=== PATIENT | female | born 1985 | race Hispanic/Latino ===

== ENCOUNTER → 2018-12-06 18:50 | Outpatient (CLI) | payer OTHER, SELFPAY ==
--- NOTE | 2018-12-06 18:53 | DI.MRI.S_ITS ---
PROCEDURE: MR LUMBAR SPINE WO CON INDICATIONS: 2 weeks history of LBP w/constipation and pain in RLE TECHNIQUE: Noncontrast sagittal T1 spin echo and T2 fast echo, sagittal STIR, axial T1 and T2 fast spin echo through the lumbar spine. In cases with scoliosis, additional coronal T2 fast spin echo may be performed. COMPARISON: None. FINDINGS: Image quality: Excellent. Alignment and Curvature: No plain films are available for comparison, for numbering purposes. Thus, for the purposes of this examination, 5 lumbar type vertebral bodies will be presumed, as denoted on the montage panel. This should be confirmed and correlated with plain films, prior to any lumbar spinal intervention. There is mild grade 1 retrolisthesis of L4 on L5. There is mild grade 1 anterolisthesis of L5 on S1. Bone Marrow: Marrow is of normal overall signal. No acute vertebral body compression fractures. Bilateral L5-S1 pars interarticularis defects. Mild reactive signal within the endplates adjacent to the L4-L5 and L5-S1 intervertebral discs. Spinal Cord: Conus medullaris terminates at the L1-L2 disc space level. Visualized cord demonstrates normal signal and size. Paraspinous Soft Tissues: No paravertebral masses. L1-L2: Normal appearance. L2-L3: Mild facet and ligament flavum hypertrophy. No significant canal, nor foraminal stenosis. L3-L4: Normal appearance. L4-L5: Mild disc height loss. Moderate disc desiccation. Mild diffuse disc bulge. Mild facet and ligamentum flavum hypertrophy. Mild canal stenosis. Mild bilateral foraminal stenosis. L5-S1: Mild disc height loss and desiccation. Mild diffuse disc bulge. Moderate facet hypertrophy bilaterally. Mild canal stenosis. Severe right and moderate to severe left foraminal stenosis. Right L5 nerve root compression. Possible left L5 nerve root compression. IMPRESSION: 1. 5 lumbar type vertebral bodies were presumed for the current report. Plain films of the lumbar spine are recommended for confirmation, prior to any lumbar spinal intervention. 2. Grade I isthmic spondylolisthesis at L5-S1. 3. Multilevel foraminal stenoses, worst at L5-S1 as above, where there is associated intraforaminal nerve root compression. Recommend correlation with clinical symptoms to ascertain relevance of these findings. Dictated by: Wong Hutton M.D. on 12/09/2018 at 10:21 Approved by: Wong Hutton M.D. on 12/09/2018 at 10:31
== END ==
PROVIDERS: PCP Physician Assistant; Visit Provider Physician Assistant
DX: M54.5 Low back pain (principal); K59.00 Constipation, unspecified; M79.604 Pain in right leg; M43.17 Spondylolisthesis, lumbosacral region; M48.07 Spinal stenosis, lumbosacral region; M54.16 Radiculopathy, lumbar region
CPT/HCPCS: 72148

== ENCOUNTER → 2019-12-22 10:42 | Outpatient (CLI) | payer OTHER, SELFPAY ==
[2019-12-22 12:41] LABS: Hemoglobin A1C% w Est Avg Glu 5.3 % (4.0-6.0)
[2019-12-22 12:53] LABS: Cholesterol 183 mg/dL (140-199); HDL Cholesterol 65 mg/dL (40-60); LDL Cholesterol Calculated 107 mg/dL (<100); Triglycerides 57 mg/dL (35-150)
== END ==
PROVIDERS: PCP Family Medicine; Referring Provider Family Medicine; Visit Provider Family Medicine
DX: Z13.1 Encounter for screening for diabetes mellitus (principal); Z13.220 Encounter for screening for lipoid disorders
CPT/HCPCS: 36415; 80061; 83036

== ENCOUNTER → 2022-09-21 19:43 | Outpatient (CLI) | payer OTHER, SELFPAY ==
--- NOTE | 2022-09-21 19:45 | DI.MRI.S_ITS ---
PROCEDURE: MR LUMBAR SPINE WO CON INDICATIONS: LUMBAR STENOSIS TECHNIQUE: Noncontrast sagittal T1 spin echo and T2 fast echo, sagittal STIR, and T2 fast spin echo through the lumbar spine. In cases with scoliosis, additional coronal T2 fast spin echo may be performed. COMPARISON: [facility], MR, MR LUMBAR SPINE WO CON, 12/06/2018, 18:57. FINDINGS: Image quality: Excellent. Alignment and Curvature: Straightening of the normal lumbar lordosis. Minimal retrolisthesis of L4 on L5. Grade 1 anterolisthesis of L5 on S1, mildly progressed compared to prior. Bone Marrow: Progression of degenerative endplate changes at L4-L5 and L5-S1, Modic type 1 Spinal Cord: Conus medullaris terminates at the L1-L2 level. Visualized cord demonstrates normal signal and size. Paraspinous Soft Tissues: No paravertebral masses. T12-L1: Normal appearance. L1-L2: Normal appearance. L2-L3: Mild facet arthropathy and thickening of the ligamentum flavum. No central canal or neural foraminal stenosis. L3-L4: Normal appearance. L4-L5: Progression of disc disease with increased disc height loss and desiccation and posterior disc bulge resulting in mild central canal stenosis. Facet arthropathy and thickened ligamentum flavum. Stable mild neural foraminal stenosis bilaterally. L5-S1: Progression of disc height loss and desiccation and grade 1 anterolisthesis. Facet hypertrophy. Severe bilateral neural foraminal stenosis with nerve root impingement. Mild central canal stenosis is stable. IMPRESSION: 1. Degenerative changes of the lumbar spine, worse at L4-L5 and L5-S1, which is progressed compared to prior. 2. At L5-S1, there is increased disc height loss and desiccation and increased anterolisthesis, grade 1. Severe bilateral neural foraminal stenosis with impingement of the L5 nerve roots. Stable mild central canal stenosis 3. At L4-5, there is progression of disc disease with stable mild central canal stenosis and mild bilateral neural foraminal stenosis. Dictated by: Felipe Aguilar M.D. on 09/22/2022 at 8:54 Approved by: Felipe Aguilar M.D. on 09/22/2022 at 9:03
== END ==
PROVIDERS: PCP Family Medicine; Referring Provider Orthopaedic Surgery Orthopaedic Surgery of the Spine; Visit Provider Orthopaedic Surgery Orthopaedic Surgery of the Spine
DX: M48.062 Spinal stenosis, lumbar region with neurogenic claudication (principal); M47.816 Spondylosis without myelopathy or radiculopathy, lumbar region; M47.817 Spondylosis without myelopathy or radiculopathy, lumbosacral region; M43.17 Spondylolisthesis, lumbosacral region; M51.26 Other intervertebral disc displacement, lumbar region
CPT/HCPCS: 72148

== ENCOUNTER 2022-12-20 12:04 | Inpatient (IN) | payer OTHER, SELFPAY ==
[2022-12-14 14:50] VITALS: BMI 23.0
[2022-12-20] VITALS (9 sets, daily range): BP systolic 91–122; BP diastolic 49–79; PULSE 52–88; RESP 16–24; TEMP 35.7–36.8; O2SAT 94–100; BMI 23.0
--- NOTE | 2022-12-20 | DI.RAD.S_ITS ---
PROCEDURE: XR LUMBAR SPINE 2-3V INDICATIONS: L5-S1 TLIF TECHNIQUE: 2 intraoperative fluoroscopic views of the lumbar spine were acquired. COMPARISON: None. FINDINGS: Bones: Intraoperative fluoroscopic views during L5-S1 posterior fusion and discectomy. The hardware appears intact. IMPRESSION: Intraoperative fluoroscopic views during L5-S1 posterior fusion and discectomy. The hardware appears intact. Dictated by: Felipe Aguilar M.D. on 12/21/2022 at 9:17 Approved by: Felipe Aguilar M.D. on 12/21/2022 at 9:18
[2022-12-20] MEDS: LACTATED RINGERS 1,000 ML 120 ML IV ×2 (13:00→14:07)
--- NOTE | 2022-12-20 13:06 | PM.PREOP ---
Pre-operative Note Interval Note History & Physical reviewed/Exam performed by Physician: Yes Changes to H&P: No
[2022-12-20] MEDS: ACETAMINOPHEN 325 MG TABLET 650 MG PO ×2 (13:11→19:05)
[2022-12-20] MEDS: CLINDAMYCIN 600 MG/50 ML PIGGYBACK 50 MG IV ×2 (13:40→21:53)
--- NOTE | 2022-12-20 13:58 | SUR.OPER ---
Prone on spine table, head in foam head support, padded chest and pelvic supports, gel pad at knees, lower legs supported by pillows; nipples, genitalia and toes free of pressure, arms secured on foam padded arm boards at <90 degrees abduction. Tape over blanket at thigh secured to table.
[2022-12-20] MEDS: BUPIVACAINE LIPOSOME 266 MG/20 ML VIAL INJ (14:07)
[2022-12-20] MEDS: BUPIVACAINE 0.25% (PF) 60 ML, EPINEPHrine 0.15 MG INJ (14:08)
--- NOTE | 2022-12-20 16:39 | PM.OP.1 ---
Operative Date/Time/Diagnoses Date of procedure: 12/20/22 Time of procedure: 14:00 Pre-op diagnosis: 1. L5-S1 spondylolisthesis 2. L5-S1 bilateral foramen stenosis Post-op diagnosis: same Procedure & Clinicians Procedure: 1. L5-S1 Postero-lateral and posterior interbody fusion 2. L5-S1 interbody cage placement. 3. L5-S1 decompressive laminectomy with bilateral facetecomies 4. L5-S1 Posterior non-segmental instrumentation 5. Olalla of bone marrow from iliac crest 6. Utilization of microsurgical technique and operating microscope Same procedure as scheduled: Yes Indications: Patient has been having chronic back pain and worsening lumbar radiculopathy. Patient failed multiple conservative management with worsening back pain and leg numbness in her lower extremity. Patient has been having difficulty performing activity of daily living. After discussing risks benefits of treatment options, patient elected proceed with surgery. Surgeon: Christophe Baca Statistical Machine Servicer: Madhavi Monge Click Yes if Unassisted: No Anesthesia Type: General Operative Notes Closure Type: primary Specimen(s): none sent Prosthetic devices, grafts, tissues, transplants, or devices: Globus revolve screws, Rise cage Estimated Blood Loss (mL): 50 Blood products transfused: none Procedure in detail: Patient was seen in the preoperative area. Risks and benefits of the surgery was discussed with the patient. Informed consent was obtained from the patient and placed in the chart. Surgical site was marked. Patient was taken to the operative room. General anesthesia was administered. Prophylactic antibiotic was given to the patient less than 30 min before the incision was made. Patient was placed into a prone position on the Dong table. Patient's back was then prepped and draped in the sterile fashion. Time-out was performed at this time. Using AP and lateral C-arm imaging the interval between L5-S1 was identified and marked on patient's back. A 2 inch incision 2 in from midline was made on the right side first. The fascia was incised in line with skin incision. Globus MARS retractors was placed inside the incision and docked onto the L5 lamina. Using microsurgical technique and operating microscope, a L5 laminectomy and L5-S1 facetectomy was performed using a Kerrison rongeur. The laminectomy and facetectomy was performed in order to decompress patient's cauda equina as well as the nerve roots exiting at the L5-S1 level. The laminectomy and facetectomy was performed in order to decompress patient's cauda equina as well as the nerve roots exiting at the L5-S1 level. The disc space at L5-S1 was identified. And a total diskectomy was performed at L5-S1 level. The endplates were decorticated using a rasp and shaver. The total diskectomy and decortication was performed at L5-S1 level in order to to accomplish a L5-S1 fusion. The local bone from the laminectomy and facetectomy was saved for local bone grafting. After the total diskectomy and decortication was completed, Trifecta bone graft material was combined with local bone that was harvested earlier. At this time, a separate skin is incision was made over the iliac crest. A Jamshidi needle was inserted into the iliac crest through a separate skin incision. 5 cc of bone marrow aspiration was obtained through the separate skin incision using a Jamshidi needle from the iliac crest. The bone marrow aspiration was combined with local bone and the DBM bone grafting material. The bone grafting material was placed into the L5-S1 interbody space along with a expandable cage. The cage was expanded to its maximum height using the torque limiting screwdriver. At this time a mirror image incision was made on the left side. The fascia was incised in line with the skin incision. Globus MARS retractor was inserted and docked onto the L5-S1 posterolateral gutter. Using the power drill, posterior-lateral decortication was performed at L5-S1 level until bleeding cortical bone was identified. The remaining bone grafting material was placed into the L5-S1 posterior lateral gutter he order to accomplish posterolateral fusion at the L5-S1 level. Using the double C-arm technique, pedicle screws were placed into the L5-S1 pedicles bilaterally. This was done by placing the Jamshidi needle into the pedicles, then placing the guidewires over the Jamshidi needle, and finally placing the cannulated screws over the guidewires bilaterally. After the pedicle screws were placed, 2 titanium rods was locked into the heads of the pedicle screws using locking caps and torque limiting screwdriver. Threaded reducers were used to reduce the patient's spondylolisthesis. The reduction was successful and was maintained using the hardware placed. After all the hardware was placed, and confirmed with AP and lateral C-arm imaging, the wound was then irrigated with sterile normal saline and packed with Ray-Ralph gauze for 3 min to accomplish hemostasis. After the gauze was removed the deep fascia was closed with #1 Vicryl suture. The subcutaneous layer was closed with 2-0 Vicryl. The skin was closed with skin carmen. Patient tolerated the procedure well. There were no complications. The Operation could not have been safely performed without compromising the technical result or length of the procedure, without the assistance of a skilled surgical elastic knitter hand frame. The surgical elastic knitter hand frame was medically necessary for proper positioning, retraction and manipulation of instruments, proper exposure, surgical preparation, and manipulation of tissue. Complications: none Post-operative Condition: stable Disposition: PACU Plan for aftercare: Admit to inpatient hospital
[2022-12-20] MEDS: OXYCODONE IR 5 MG TABLET PO (16:54)
[2022-12-20] MEDS: LACTATED RINGERS 1,000 ML 125 ML IV (17:31)
[2022-12-20] MEDS: hydrOXYzine pamoate 25 MG CAPSULE PO (17:32)
[2022-12-20] MEDS: HYDROMORPHONE 0.5 MG INJ IV (17:32)
--- NOTE | 2022-12-20 17:57 | PC.NURSE ---
Pt arrives to Room 222 at 1720 this evening, she is awake and alert 0x4. She denies numbness or tingling to BLE's. Dressing to back is C/D/I. She requests to use the restroom and follow spinal precautions shown when getting out of bed. She is slightly unsteady but able to ambulate to bathroom for x1 large void this evening shortly after arriving. She denies dizziness. Patient's family at bedside supportive bringing her food. She tolerates food well this evening. LR at 120 ml/hr. SCDS's in place, call light in reach, items in reach,continuous pulse ox, and frequent rounding.
[2022-12-20] MEDS: OXYCODONE IR 10 MG TABLET PO ×2 (19:05→21:52)
[2022-12-20] MEDS: ONDANSETRON 4 MG/2 ML INJ IV (19:07)
[2022-12-20] MEDS: DOCUSATE 100 MG CAPSULE PO (21:52)
[2022-12-20] MEDS: SENNOSIDES 8.6 MG TABLET 17.2 MG PO (21:52)
[2022-12-20] MEDS: ONDANSETRON 4 MG ODT SL (22:34)
[2022-12-21] MEDS: OXYCODONE IR 10 MG TABLET PO ×4 (03:16→13:14)
[2022-12-21] MEDS: LACTATED RINGERS 1,000 ML 125 ML IV (03:23)
[2022-12-21] MEDS: HYDROMORPHONE 0.5 MG INJ IV (04:44)
[2022-12-21] MEDS: CLINDAMYCIN 600 MG/50 ML PIGGYBACK 50 MG IV (06:08)
[2022-12-21] MEDS: ACETAMINOPHEN 325 MG TABLET 650 MG PO (07:57)
[2022-12-21] MEDS: CYANOCOBALAMIN (VITAMIN B-12) 500 MCG TABLET 1000 MCG PO (08:04)
[2022-12-21] MEDS: valACYclovir 500 MG TABLET PO (08:04)
[2022-12-21] MEDS: DOCUSATE 100 MG CAPSULE PO (08:04)
--- NOTE | 2022-12-21 09:25 | PT.IIE ---
Current Diagnoses Spondylolisthesis, lumbosacral region (12/20/22) Spinal stenosis, lumbosacral region (12/20/22) Surgery Performed Operation Date: 12/20/22 13:45 Actual Procedures p L5-S1 TLIF(Not Applicable) - Christophe Baca MD Surgical History (Last Reviewed 12/22/19 @ 10:47 by Vishnu Ansari MD) History of breast augmentation Status post delivery Status post rhinoplasty Medical History (Last Updated 12/22/19 @ 10:48 by Vishnu Ansari MD) Screening for hyperlipidemia Physical Therapy Inpatient Evaluation/Re-Eval M1 PT/OT-IP Prior Functional Status Start: 12/21/22 10:28 Freq: NEEDED Status: Active Protocol: Document 12/21/22 11:37 AB (Rec: 12/21/22 11:52 AB [id number]) Medical Review Prior Functional Status Medical History Reviewed Yes Communication Independent Mobility and Gait Had pain with certain movements. Activities of Daily Living and IADL's Pt had difficulty and pain to dottie her socks, wipe after toileting, and for IADL needs. Prior Functional Level (Other details) Pt's kids to assist along with her mother and mother in law. Social History Household Members children Living Arrangements House Number of Floors (Floors) Two Floors Number of Stairs To Enter/Railing? 2 ERIN without hand rails Home Environment Standard Height Toilet,Tub/ Shower Home Equipment Hand Held Shower,Grab Bars In Shower Additional Social History Comment Pt reports she has 8 steps (R hand rail) + 8 steps ( banisters) to go up to her room and bathrooms with showers. She reports she will be sleeping on main level in recliner. She also states her mom and her MIL will be assisting her for 3 weeks, and her 2 older kids can assist her with a lot of natural resources professor. M1 PT/OT-IP Prior Functional Status Start: 12/21/22 11:37 Freq: NEEDED Status: Active Protocol: Document 12/21/22 11:37 AB (Rec: 12/21/22 11:52 AB [id number]) Medical Review Prior Functional Status Medical History Reviewed Yes Communication Independent Mobility and Gait Had pain with certain movements. Activities of Daily Living and IADL's Pt had difficulty and pain to dottie her socks, wipe after toileting, and for IADL needs. Prior Functional Level (Other details) Pt's kids to assist along with her mother and mother in law. Social History Household Members children Living Arrangements House Number of Floors (Floors) Two Floors Number of Stairs To Enter/Railing? 2 ERIN without hand rails Home Environment Standard Height Toilet,Tub/ Shower Home Equipment Hand Held Shower,Grab Bars In Shower Additional Social History Comment Pt reports she has 8 steps (R hand rail) + 8 steps ( banisters) to go up to her room and bathrooms with showers. She reports she will be sleeping on main level in recliner. She also states her mom and her MIL will be assisting her for 3 weeks, and her 2 older kids can assist her with a lot of natural resources professor. M2 PT-IP Current Condition Start: 12/21/22 11:37 Freq: NEEDED Status: Active Protocol: Document 12/21/22 11:37 AB (Rec: 12/21/22 11:52 AB [id number]) Physical Therapy Current Condition Current Condition Evaluation Date 12/21/22 Treatment Diagnosis s/p lumbar TLIF L5-S1 Onset Date 12/20/22 M3 PT-IP Subjective Start: 12/21/22 11:37 Freq: NEEDED Status: Active Protocol: Document 12/21/22 11:37 AB (Rec: 12/21/22 11:52 AB [id number]) Subjective Physical Therapy Visit Type Type Initial Evaluation Visit Start Time 08:58 Visit Stop Time 09:25 Total Visit Minutes 27 Physical Therapy Visit Comments Patient Comments Pt presents semi supine in bed and is agreeable to PT evaluation. She denies having any symptoms currently. Therapy Pain Assessment Pain When Pain Assessed At Rest Pain Present Pain Present Denied Pain M4 PT-IP Mobility and Gait Start: 12/21/22 11:37 Freq: NEEDED Status: Active Protocol: Document 12/21/22 11:37 AB (Rec: 12/21/22 11:52 AB [id number]) PT-Bed Mobility Assessment Rolling Type of Rolling Log Rolling Level of Assist Independent Supine to Sit Supine to Sit Independent Sit to Supine Sit to Supine Independent Scooting Scooting to Edge of Bed Independent Scooting Up and Down in Bed Independent PT-Transfer Assessment Sit to and From Stand Sit to and from Stand Independent,Use of Upper Extremities Equipment Transfer Assistive Device Gait Belt Transfers Transfer Destination Bed Transfer Technique Stand Step Pivot Comments Mobility Comments The pt has been up with nursing already and denies any symptoms when being up. She is able to perform all bed mobility, STS and transfers with independence. The pt was provided with a few tips to maintain lumbar spine precautions, but is otherwise able to perform with ease and without symptoms. After ambulation and stairs, the pt returned to bed with all needs met and call light within reach. RN was notified of findings. Gait Assessment Gait Gait Assistance Required: Independent Distance (Feet) 300 Assistive Devices Assistive Device Gait Belt Gait Deviations General Gait Pattern Within Normal Limits Comments Gait Comments The pt was able to ambulate 300ft without an assistive device and with independence. No gait deviations were noted, though she report ambulating at a slower иван due to being in bed for the last 24 hours. Otherwise, she denies any symptoms. Stair Climbing Assessment Evaluation Level of Assist On Stairs Independent Devices Stair Climbing Assistive Devices Right Railing Technique/Endurance Stair Climbing Direction Ascend and Descend Stair Climbing Technique Step Over Step Number of Steps Climbed 9 Query Text: Stair Climbing Set # Repetitions (reps) 2 Comments Stair Climbing Comments Pt is able to ascend/descend 9 steps with 1 hand rail independently with step over step (reciprocally). No deficits noted. She is even able to ascend 2-3 without use of hand rail. PT-Balance Assessment Sitting Balance and Reactions Static Sitting Balance Ability Normal Dynamic Sitting Balance Ability Normal Standing Balance and Reactions Static Standing Balance Ability Normal Dynamic Standing Balance Ability Normal M5 PT-IP Objective Assessments Start: 12/21/22 11:37 Freq: NEEDED Status: Active Protocol: Document 12/21/22 11:37 AB (Rec: 12/21/22 11:52 AB [id number]) Orientation Orientation/Cognition Level of Alertness Alert Orientation Name,Age,Birthday,Month,Date, Year,Day of Week,Place, Situation Language Function Ability No Deficits Noted Safety Awareness Understands Safety Issues Memory Description No Deficits Noted Gross Range of Motion Upper Extremity ROM Assessment Within Functional Limits Lower Extremity ROM Assessment Within Functional Limits Strength Upper Extremity Strength Assessment Within Functional Limits Lower Extremity Strength Assessment Within Functional Limits M6 PT-IP Treatment Start: 12/21/22 11:37 Freq: NEEDED Status: Active Protocol: Document 12/21/22 11:37 AB (Rec: 12/21/22 11:52 AB [id number]) Physical Therapy Treatment Education Education Provided Precautions,Post-Op Packet, Safety Brace Education Patient M7 PT-IP Assessment and Plan Start: 12/21/22 11:37 Freq: NEEDED Status: Active Protocol: Document 12/21/22 11:37 AB (Rec: 12/21/22 11:52 AB [id number]) PT Summary Assessment and Plan Potential Rehabilitation Potential Excellent Status of Condition at Evaluation Stable Summary Impairments Strength,Activity Tolerance Assessment Summary Sylvia Rogers is a 37 year old female patient who is s/p lumbar TLIF L5-S1 performed on 12/20/22. The pt demonstrates a high level of function during today's PT evaluation, as she is able to perform all functional mobility with independence, including ambulation and stairs. Based on her current level of function, PT recommends discharge to home with assistance. She was educated on surgical precautions as well as seeking outpatient PT in the future if needed. Goals Bed Mobility Goal Independent Transfer Goal Independent Gait Goal Independent Gait Distance 500 Other Goals Pt to ambulated 500ft independently to demonstrate ability to ambulate community distances. Days to Meet Goals 5 Frequency of Treatment Frequency Of Treatment Discharge Treatment Plan Physical Therapy Treatment Plan Bed Mobility Training,Transfer Training,Gait Training, Therapeutic Exercise,Balance Retraining,Post Op Education, Discharge Planning,Hot or Cold Pack,Neuromuscular Re-ed, Coordination Retraining,Manual Therapy Other Recommendations and Next Treatment Discharge pt due to high level Focus of function. Precautions Lumbar Precautions Log Roll,No Twisting,Limit Bending,Lifting Restriction of 10 lbs,Gait Belt above Incisional Area Weight Bearing Status Weight Bearing Status Weight Bear as Tolerated Recommendations To Nursing Amount of Assist Needed Independent Discharge Recommendations PT Discharge Recommendations Home with Assistance Other Discharge Recommendations Pt was educated on seeking outpatient PT in the future as needed. Transportation Needs at Discharge Private Vehicle
--- NOTE | 2022-12-21 10:25 | OT.IP.EVAL ---
Current Diagnoses Spondylolisthesis, lumbosacral region (12/20/22) Spinal stenosis, lumbosacral region (12/20/22) Surgery Performed Operation Date: 12/20/22 13:45 Actual Procedures p L5-S1 TLIF(Not Applicable) - Christophe Baca MD Past Medical History (Last Updated 12/22/19 @ 10:48 by Vishnu Ansari MD) Screening for hyperlipidemia Surgical History (Last Reviewed 12/22/19 @ 10:47 by Vishnu Ansari MD) History of breast augmentation Status post delivery Status post rhinoplasty Occupational Therapy Inpatient Evaluation/Re-Eval M1 PT/OT-IP Prior Functional Status Start: 12/21/22 10:28 Freq: NEEDED Status: Active Protocol: Document 12/21/22 10:28 [facility] (Rec: 12/21/22 10:39 [facility] [id number]) Medical Review Prior Functional Status Communication Independent Mobility and Gait Had pain with certain movements. Activities of Daily Living and IADL's Pt had difficulty and pain to dottie her socks, wipe after toileting, and for IADl needs. Prior Functional Level (Other details) Pt's kids to assist along with her mother and mother in law. Social History Household Members children Living Arrangements House Number of Floors (Floors) Two Floors Number of Stairs To Enter/Railing? 2 steps and then multiple steps to the upstairs. Pt states to just stay downstairs in the recliner initially. Home Environment Standard Height Toilet,Tub/ Shower Home Equipment Hand Held Shower,Grab Bars In Shower M2 OT-IP Current Condition Start: 12/21/22 10:28 Freq: Status: Active Protocol: Document 12/21/22 10:28 [facility] (Rec: 12/21/22 10:39 [facility] [id number]) Occupational Therapy Current Condition Current Condition Evaluation Date 12/21/22 Treatment Diagnosis S/P L5-S1 TLIF Diagnosis Onset Date 12/20/22 Post Operative Precautions Lumbar Precautions Log Roll,No Twisting,Limit Bending,Lifting Restriction of 10 lbs,Gait Belt above Incisional Area M3 OT- IP Subjective and Pain Start: 12/21/22 10:28 Freq: Status: Active Protocol: Document 12/21/22 10:28 [facility] (Rec: 12/21/22 10:39 [facility] [id number]) OT- Subjective Occupational Therapy Visit Type Type Initial Evaluation Visit Start Time 09:55 Visit Stop Time 10:25 Total Visit Minutes 30 Occupational Therapy Visit Comments Patient Comments Pt wanting to get dressed. Patient/Caregiver Goals TO go home. OT Pain Assessment Pain When Pain Assessed At Rest Pain Present Pain Present Pain Reported Location Back Intensity 7 Scale Used Numeric (0 - 10) M4 OT- IP ADL's Start: 12/21/22 10:28 Freq: Status: Active Protocol: Document 12/21/22 10:28 [facility] (Rec: 12/21/22 10:39 [facility] [id number]) OT [id number] General Evaluation Self-Feeding Ability Independent OT ADL-Grooming General Evaluation Grooming Ability Independent OT ADL-Oral Care General Eval Oral Care Ability Independent Comments Oral Care Comments Pt educated to hinge at her hips or just spit into a cup to best follow her back precautions. OT ADL-Dressing General Eval Upper Body Dressing Ability Independent Lower Body Dressing Ability Standby Assistance Comments OT Dressing Comments Pt able to comfortable cross her legs for LB dressing needs . Pt needing initial education to sit for LB dressing needs for safety. OT ADL-Toileting General Evaluation Toileting Ability Independent Comments OT Toileting Comments Pt able to reach back appropriately for hygiene needs. Suggested use of wet ones. OT ADL-Bathing Comments OT Bathing Comments Not performed. M5 OT- IP IADL's Start: 12/21/22 10:28 Freq: Status: Active Protocol: Document 12/21/22 10:28 [facility] (Rec: 12/21/22 10:39 [facility] [id number]) OT-Instrumental Activities of Daily Living Home Safety Awareness Awareness of Need for Assistance at Home Good Awareness Ability to Problem Solve Emergency Able to Problem Solve Situations Home Safety Comments Pt's mom and kids to assist at home. Medication Management Medication Management No Deficits Identified Money Management Money Management No Deficits Identified Meal Preparation Meal Preparation Caregiver Provides Assist Latexer Latexer Caregiver Provides Assist Driving Driving Comments Pt aware not to drive at this time. M6 OT- IP Functional Cognition Start: 12/21/22 10:28 Freq: Status: Active Protocol: Document 12/21/22 10:28 [facility] (Rec: 12/21/22 10:39 [facility] [id number]) Cognitive Factors Limiting Selfcare Function Cognitive Ability Level of Alertness Alert Patient Orientation Name,Age,Birthday,Month,Date, Year,Day of Week,Place, Situation Attention Span Ability Capable of Focused Attention, Capable of Sustained Attention Ability to Follow Commands Able to Follow Multi-Step Commands Memory Description No Deficits Noted Safety Awareness No Deficits Noted Problem Solving Ability No deficits Noted Executive Function Ability No Deficits Noted Cognitive Comments Cognitive Assessment Comments Pt intact. OT- Vision and Hearing OT- Hearing Assessment OT- Hearing Assessment WFL OT- Vision Assessment Visual Acuity WFL M7 OT- IP Mobility and Balance Start: 12/21/22 10:28 Freq: Status: Active Protocol: Document 12/21/22 10:28 [facility] (Rec: 12/21/22 10:39 [facility] [id number]) OT- Bed Mobility Assessment Supine to Sit Supine to Sit Assist Independent Sit to Supine Sit to Supine Assist Independent Scooting Scooting to Edge of Bed Independent Scooting Up and Down in Bed Independent OT-Transfer Assessment Sit to and From Stand Sit to and from Stand Independent Transfers Transfer Ability Independent Technique Transfer Destination Bed,Chair,Shower Stall Devices Transfer Assistive Devices None Comments Mobility Comments Pt completely independent in the room without a device. OT- Gait Assessment Gait Gait Assistance Required: Independent OT- Balance Assessment Sitting Balance and Reactions Static Sitting Balance Ability Normal Dynamic Sitting Balance Ability Normal Standing Balance and Reactions Static Standing Balance Ability Normal Dynamic Standing Balance Ability Good M9 OT- IP Assessment and Plan Start: 12/21/22 10:28 Freq: Status: Active Protocol: Document 12/21/22 10:28 [facility] (Rec: 12/21/22 10:39 [facility] [id number]) OT Summary Assessment and Plan Potential Rehabilitation Potential Excellent Analytic Complexity at Evaluation Low Summary OT Impairments Pain,Dressing,Bathing Progress Towards Goals Progressing Toward Goals Assessment Summary Pt low complexity and main barriers is pain. Pt after OT suggestions and techniques for back precautions pt is safe to be able to do her ADL and mobility. Pt will benefit from assist with showering and IADl needs. Pt to go home with assist from her kids and mom when medically stable. Goals Bathing Goal Independent Days to Meet Goals 2 Frequency of Treatment Frequency Of Treatment Once a Day Treatment Plan OT Treatment Plan ADL Training,Functional Mobility,Patient/Family Education,Discharge Planning Discharge Recommendations OT Discharge Recommendations Home with Assistance Transportation Needs at Discharge Private Vehicle
[2022-12-21] MEDS: hydrOXYzine pamoate 25 MG CAPSULE PO (10:30)
--- NOTE | 2022-12-21 10:50 | CM.DANOTE ---
Initial DCP Assessment Note Pt is a 37 yo female, resident of [place], now POD#1 from TLIF PCP: Vishnu Ansari Payer: lizz TORRES Reviewed chart, pt discussed in multidisciplinary rounds this morning. Therapy has cleared pt for return home w/family to assist and pt has planned for home. Patient indp in all aspects at baseline and will have her children, mother and mother in law available to assist in her recovery. No DC order from Ortho has been initiated this morning. No barriers identified at this time to patient's safe discharge home w/family to assist; close outpatient f/u recommended. CM team will plan to follow closely in case any DC needs or concerns arise. YANE Buitrago Discharge Planning/Care Management CM Discharge Assessment Start: 12/21/22 10:30 Freq: Status: Active Protocol: Document 12/21/22 10:30 [place] (Rec: 12/21/22 10:50 [place] [id number]) Discharge Planning Assessment Assigned Surg Rn YANE Perkins DPOA/Assigned Designee Name mother Sorensen Contact Information [phone] Advance Directives? No History Provided By Patient,Medical Record Prior Living Arrangements House Household Members children Type of transporation used prior to Drives own vehicle admit Independent with ADL's Yes Is patient alert and oriented? Yes Patient/Family Preference OP PT Therapy Comment Home w/family Barriers to Discharge No Discharge Plan Home Transportation Arrangement Family Referrals Initiated None needed
--- NOTE | 2022-12-21 13:12 | PM.DS.1 ---
History of Present Illness History of Present Illness Date Patient Seen: 12/21/22 Time Patient Seen: 13:12 Chief complaint: INPT Narrative: Operative Date/Time/Diagnoses Date of procedure: 12/20/22 Time of procedure: 14:00 Pre-op diagnosis: 1. L5-S1 spondylolisthesis 2. L5-S1 bilateral foramen stenosis Post-op diagnosis: same Procedure & Clinicians Procedure: 1. L5-S1 Postero-lateral and posterior interbody fusion 2. L5-S1 interbody cage placement. 3. L5-S1 decompressive laminectomy with bilateral facetecomies 4. L5-S1 Posterior non-segmental instrumentation 5. [place] of bone marrow from iliac crest 6. Utilization of microsurgical technique and operating microscope Same procedure as scheduled: Yes Indications: Patient has been having chronic back pain and worsening lumbar radiculopathy. Patient failed multiple conservative management with worsening back pain and leg numbness in her lower extremity. Patient has been having difficulty performing activity of daily living. After discussing risks benefits of treatment options, patient elected proceed with surgery. Surgeon: Christophe Baca Mixing Technician: Madhavi Monge Click Yes if Unassisted: No Anesthesia Type: General Operative Notes Closure Type: primary Specimen(s): none sent Prosthetic devices, grafts, tissues, transplants, or devices: Globus revolve screws, Rise cage Estimated Blood Loss (mL): 50 Blood products transfused: none Discharge Providers Provider Date of admission: 12/20/22 12:04 Discharge Date: 12/21/22 Primary care physician: Vishnu Ansari MD Consults: 12/20/22 17:07 Consult to Occupational Therapy Evaluate & Treat Comment: Physician Instructions: Evaluate and treat Consult to Physical Therapy Evaluate & Treat Comment: Physician Instructions: Evaluate and Treat Discharge provider: Madhavi Monge PA-C Summary Hospital Course Discharge Diagnosis: L5-S1 spondylolisthesis, L5-S1 bilateral foramen stenosis; s/p lumbar fusion Hospital Course: Pt was seen and examined by Dr Baca today. Ms Rogers's course was unremarkable. On the afternoon of POD# 1, she was feeling well and wanted to go home. She was eating and voiding without difficulty and her pain was well-controlled with oral medication. She was evaluated by PT and they felt she was appropriate for discharge home. Exam Vital Signs (past 8 hours): Oxygen Delivery Method Room Air Oxygen Flow Rate 0 Narrative Exam Narrative: 5/5 strength in hip flexors, quadriceps, hamstrings, DF, PF, EHL bilaterally. Sensation to touch intact in BLE. Calves soft, compressible, nontender. Dressings placed intraoperatively are CDI. [facility] Medical History (Updated 12/22/19 @ 10:48 by Vishnu Ansari MD) Screening for hyperlipidemia Surgical History (Updated 12/21/22 @ 12:36 by Madhavi Monge PA-C) Status post rhinoplasty Status post delivery History of breast augmentation Social History household members: children Smoking Status: Never smoker second hand exposure: No alcohol intake: current substance use type: does not use Discharge Assessment & Plan Assessment and Plan Assessment: L5-S1 spondylolisthesis, L5-S1 bilateral foramen stenosis; s/p lumbar fusion Plan of Treatment: Discharge home. Follow up in office in 2 weeks as scheduled. Discharge Plan Discharge Plan Patient Disposition: Home Discharge orders & Medications Prescriptions: New acetaminophen 325 mg Tablet 650 mg PO Q6H PRN (Reason: Fever/Mild Pain (1-3)) Qty: 240 0RF docusate sodium 100 mg Capsule 100 mg PO BID PRN (Reason: constipation) Qty: 60 1RF hydroxyzine pamoate 25 mg Capsule 25 mg PO Q4HR PRN (Reason: muscle spasm) Qty: 60 0RF oxycodone 5 mg tablet 5 mg PO Q4-6H PRN (Reason: pain (scale score 7-10)) Qty: 60 0RF Continued cyanocobalamin (vitamin B-12) 1,000 MCG tablet extended release 1,000 mcg PO QDAY Qty: 0 valacyclovir 500 mg tablet 500 mg PO DAILY Follow up/Referrals: Vishnu Ansari MD [Primary Care Provider] - Christophe Baca MD [Physician] - As previously scheduled (Follow up with Madhavi Monge PA-C, on 01/04/2023 @ 2:10 at [facility] office in [place].) Diet/Activity/Treatments Diet: Diet as Tolerated Activity: No deep bending or twisting at the waist. No lifting more than 10 pounds. Cold/Heat Therapy: Heating pad to low back as needed for pain. Skin/Wound/Dressing Care Report to your healthcare provider any signs of infection, such as:: chills, fever, night sweats, unusual drainage and unusual redness Dressing: May shower. Keep dressing as dry as possible. If dressing becomes wet or dirty, remove and replace with clean, dry gauze. No bathing or otherwise soaking incisions. Do not apply any creams, lotions, or ointments to incisions. Visit Report/Discharge Packet Instructions: DI for Prescription Opioid Use, DI for Transforaminal Lumbar Interbody Fusion Stand Alone Forms: Patient Portal/API, Stroke Signs & Symptoms, Surgery Discharge Discharge Data Primary Care Provider: Vishnu Ansari
--- NOTE | 2022-12-21 13:14 | PM.PN.1 ---
Exam Vital Signs (past 8 hours): Oxygen Delivery Method Room Air Oxygen Flow Rate 0 PFSH Medical History (Updated 12/22/19 @ 10:48 by Vishnu Ansari MD) Screening for hyperlipidemia Surgical History (Updated 12/21/22 @ 12:36 by Madhavi Monge PA-C) Status post rhinoplasty Status post delivery History of breast augmentation Social History household members: children Smoking Status: Never smoker second hand exposure: No alcohol intake: current substance use type: does not use Assessment & Plan Assessment & Plan narrative: Patient is POD#1 s/p L5-S1 TLIF. Patient is doing well and happy with her progress. On exam, patient's dressing is clean and dry. Patient is neuro intact on exam. Patient is cleared by PT/OT for discharge. Discharge instruction and prescription given to patient. Will f/u in 2 weeks in clinic.
--- NOTE | 2022-12-21 14:34 | PC.NURSE ---
Patient is A&OX4, VSS, afebrile on RA. She is ambulatory with SBA. She reports pain to back 7/10 controlled well with PRN oxycodone. Dressing to back C/D/I. She tolerates breakfast well this a.m. She is cleared by PT/OT for discharge home this afternoon. She verbalizes understanding of site care, medications, activity limitations, s/sx of infection/complication as well as follow up appointment on 01/04/23. She is escorted via w/ch with all of her personal belongings to private vehicle for discharge home with mother in private vehicle for discharge home at 1341.
== END 2022-12-21 13:41 | disposition home or self-care (01) | DRG 455 ==
PROVIDERS: Admitting Provider Orthopaedic Surgery Orthopaedic Surgery of the Spine; PCP Family Medicine; Referring Provider Orthopaedic Surgery Orthopaedic Surgery of the Spine; Visit Provider Orthopaedic Surgery Orthopaedic Surgery of the Spine
PROC: 0SG30AJ Fusion of Lumbosacral Joint with Interbody Fusion Device, Posterior Approach, Anterior Column, Open Approach (ICD-10-PCS; principal; 2022-12-20 13:45)
DX: M43.17 Spondylolisthesis, lumbosacral region (principal); M48.07 Spinal stenosis, lumbosacral region
CPT/HCPCS: 72100; 76000; 97161; 97165; 97535; C9290; J0171; J1100; J1170; J2250; J2405; J2704; J3010